=== PATIENT | female | born 1995 | race African-American/Black ===

== ENCOUNTER 2017-03-29 10:13 | Emergency (ER) | payer MEDICAID ==
[~2017-03-29] VITALS: Ht 152.4 cm; Wt 57.0 kg
[2017-03-29 10:56] VITALS: BP 110/42
== END 2017-03-29 13:12 | disposition home or self-care (01) ==
LOC: ER 10:42
DX: J04.0 Acute laryngitis (principal)
CPT/HCPCS: 87070; 87430; 99284

== ENCOUNTER 2019-01-22 12:36 | Emergency (ER) | payer MEDICAID ==
[~2019-01-22] VITALS: Ht 152.4 cm; Wt 59.0 kg
[2019-01-22 13:53] VITALS: BP 124/60
== END 2019-01-22 13:57 | disposition home or self-care (01) ==
LOC: ER 12:46
DX: S80.862A Insect bite (nonvenomous), left lower leg, initial encounter (principal); L03.116 Cellulitis of left lower limb; W57.XXXA Bitten or stung by nonvenomous insect and other nonvenomous arthropods, initial encounter; Y93.89 Activity, other specified; Y92.89 Other specified places as the place of occurrence of the external cause; Y99.8 Other external cause status
CPT/HCPCS: 99281; 99283